=== PATIENT | male | born 1950 | race Caucasian/White ===

== ENCOUNTER → 2024-08-03 06:39 | Outpatient (REF) | payer OTHER, SELFPAY | LOC: RAD 06:39 | PROVIDERS: ATTENDING PHYSICIAN Student in an Organized Health Care Education/Training Program | DX: R22.42 Localized swelling, mass and lump, left lower limb (principal) | CPT/HCPCS: 76882 ==

== ENCOUNTER → 2024-08-10 06:39 | Outpatient (REF) | payer OTHER, SELFPAY | LOC: RAD 06:39 | PROVIDERS: ATTENDING PHYSICIAN Student in an Organized Health Care Education/Training Program | DX: I77.0 Arteriovenous fistula, acquired (principal) | CPT/HCPCS: 93970 ==

== ENCOUNTER 2024-09-11 06:12 | Day surgery (SDC) | payer OTHER, SELFPAY ==
[2024-09-05 09:25] VITALS: BMI 28.0
[2024-09-05 09:58] LABS: % Basophils 0.8 % (0-2); % Eosinophils 5.5 % (0-6); % Immature Granulocytes 0.3 % (0-0.5); % Lymphocytes 31.4 % (20.5-51.1); % Monocytes 9.5 % (1.7-9.3); % Neutrophils 52.5 % (42.2-75.2); Absolute Eosinophils 0.2 10^3/uL (0-0.7); Absolute Lymphocytes 1.3 10^3/uL (1.2-3.4); Absolute Monocytes 0.4 10^3/uL (0.1-0.6); Absolute Neutrophils 2.1 10^3/uL (1.4-6.5); Hematocrit 42.5 % (39.0-52.0); Hemoglobin 14.2 g/dL (13.0-18.0); Mean Corp Hgb Conc. 33.4 g/dL (33.0-37.0); Mean Corpuscular Hgb 31.7 pg (27.0-31.0); Mean Corpuscular Volume 94.9 fL (80.0-94.0); Mean Platelet Volume 10.9 fL (7.4-10.4); Nucleated Red Blood Cells % 0 % (-); Platelet Count 114 10^3/uL (130-400); Red Blood Cell Count 4.48 10^6/uL (4.70-6.10); Red Cell Dist. Width 13.7 % (11.5-14.5)
[2024-09-05 10:06] LABS: Blood Urea Nitrogen 21 mg/dl (9-20); Calcium 10.2 mg/dl (8.4-10.2); Carbon Dioxide 30 mmol/L (22-30); Chloride 105 mmol/L (98-107); Estimated Creatinine Clearance 72 ml/min; Glucose 98 mg/dl (70-99); Potassium 5.2 mmol/L (3.5-5.1); Sodium 138 mmol/L (135-145); eGFR > 60.00
[2024-09-05 10:11] LABS: INR 1.04; PT 14.1 Sec (11.4-14.6)
[2024-09-05 10:12] LABS: APTT 30.5 Sec (23.4-35.0)
[2024-09-11] VITALS (14 sets, daily range): BP systolic 0–181; BP diastolic 61–84
[2024-09-11] MEDS: PERIDEX 0.12% ORAL RINSE 15 ML PO (07:10)
[2024-09-11] MEDS: BACTROBAN NASAL 1 GRAM NASAL (07:10)
--- NOTE | 2024-09-11 07:15 | W.SUR.PREOP ---
Pre-Operative Surgical Note
-
I have examined this patient prior to the performance of the scheduled procedure.
The patient's condition is unchanged from the time of the current History and
Physical and the patient is able to undergo the scheduled procedure.
--- NOTE | 2024-09-11 10:07 | OR.RPT ---
Operative Report
Operative Report
Date of Operation: 09/11/2024
Pre Op Diagnosis:
1. Left great saphenous vein aneurysm
2. Symptomatic left lower extremity venous insufficiency
Post Op Diagnosis:
1. Left great saphenous vein aneurysm
2. Symptomatic left lower extremity venous insufficiency
Procedure:
1. Ligation and division of left saphenofemoral junction
2. Resection of great saphenous vein aneurysm
3. Radiofrequency endovenous ablation of left great saphenous vein (distal calf puncture site)
Surgeon: Agustin Senior III, MD
Infection Control Coordinator: Collin Rosas MD, PGY4
Anesthesia: General
Complications: None
Estimated Blood Loss: Minimal
History and Indications for Procedure: 74-year-old male with symptomatic venous insufficiency involving the left great saphenous vein along with a left great saphenous vein aneurysm.
Procedure in Detail: Agustin Huggins was correctly identified and placed supine on the operating table. After adequate induction of anesthesia the left leg was frog-legged and the table placed into a reverse Trendelenburg position. The left leg was
circumferentially prepped and draped in the usual sterile fashion. A timeout procedure was performed with the nursing and anesthesia staff confirming the patient's identity as well as the nature and laterality of the procedure.
The left great saphenous vein was identified using ultrasound guidance. The vein was visualized from the distal calf to the saphenofemoral junction. The saphenofemoral junction was identified along with the location of the great saphenous vein
aneurysm several centimeters distal to this on the proximal thigh. An appropriate site for percutaneous access was identified at the distal calf. Local anesthesia was infiltrated into the proposed puncture site. The left great saphenous vein was
accessed with a micropuncture needle under ultrasound guidance and the 7 [place] sheath was placed. Under direct ultrasound guidance the 100 cm length /7 cm tip radiofrequency ablation catheter was advanced towards the saphenofemoral junction.
Using a real-time direct ultrasound measurement the tip of the catheter was positioned in the mid thigh just distal to the great saphenous vein aneurysm. The position of the catheter was then externally marked using the white plastic doughnut on
the catheter at the sheath exit site.
Rather than make 1 large incision to perform the saphenofemoral junction ligation and resection of the saphenous vein aneurysm I elected to perform 2 smaller skip incisions. The first incision was made over the great saphenous vein aneurysm.
Electrocautery and sharp dissection were used to expose the great saphenous vein aneurysm. The proximal and distal great saphenous vein relative to the aneurysm were identified. A silk tie was placed on the distal great saphenous vein and secured.
Prior to this, using digital manipulation I pulled back and positioned the radiofrequency catheter tip in the distal vein out of the way of our silk tie. The other incision was made vertically over the saphenofemoral junction. Electrocautery and
sharp dissection were used to expose the saphenofemoral junction. Communicating venous branches were ligated and divided between silk ties. The saphenofemoral junction was clearly exposed. A heavy silk tie was placed on the more distal portion of
the great saphenous vein and secured. A right angle clamp was placed at the saphenofemoral junction. The saphenofemoral junction was divided. The stump of the saphenofemoral junction was then suture-ligated with a silk suture ligature. The vein
segment in the tunnel was circumferentially dissected free using sharp dissection and electrocautery. We then transected the vein distal to the aneurysm and removed the entire segment of great saphenous vein from the saphenofemoral junction down to
the vein segment distal to the aneurysm. This was sent to pathology.
Using ultrasound guidance Tumescent solution was then infiltrated circumferentially around the left great saphenous vein from the sheath insertion site to the tip of the catheter at the end of the ligated great saphenous vein in the thigh. At this
point the table was flattened out. The left great saphenous vein was then ablated using 2 treatment cycles at each segment. Once completed the sheath and catheter were removed. Direct manual pressure was held on the puncture site and hemostasis
was achieved. A sterile dressing was applied.
A #10 ELLI drain was left in the tunnel between the 2 incisions in the thigh. This was brought out through a separate stab incision at the skin and secured in place with a nylon suture. Hemostasis was achieved in both wound beds. The wounds were
irrigated with saline solution. The wounds were each individually closed in layers. Running Monocryl suture was used to reapproximate the skin and sterile skin glue was applied to each incision. The ELLI was connected to bulb suction.
The patient's leg was cleaned and then wrapped with an Clint wrap from the toes to the proximal thigh. The patient tolerated the procedure well was taken to the recovery room in good condition.
Attestation: I was present and responsible for the entire procedure
Signed:
Agustin Senior III, MD
[facility]
[phone] (xtdn)
== END 2024-09-11 11:50 | disposition home or self-care (01) ==
LOC: CATH 06:12
PROVIDERS: ATTENDING PHYSICIAN Surgery Vascular Surgery; FAMILY PHYSICIAN Student in an Organized Health Care Education/Training Program; OTHER PHYSICIAN Internal Medicine Cardiovascular Disease
DX: I87.2 Venous insufficiency (chronic) (peripheral) (principal); I83.892 Varicose veins of left lower extremity with other complications
CPT/HCPCS: 36475; 37700; 88304; 36415; 80048; 85025; 85610; 85730; 93005; C1769

== ENCOUNTER → 2024-09-14 13:58 | Outpatient (REF) | payer OTHER, SELFPAY | LOC: DHVS 13:58 | PROVIDERS: ATTENDING PHYSICIAN Surgery Vascular Surgery; FAMILY PHYSICIAN Student in an Organized Health Care Education/Training Program | DX: I86.8 Varicose veins of other specified sites (principal); I87.2 Venous insufficiency (chronic) (peripheral) | CPT/HCPCS: 93971 ==